=== PATIENT | male | born 1950 | race Two or more races ===

== ENCOUNTER 2022-08-23 17:43 | Inpatient (IN) | payer OTHER ==
[~2022-08-23] VITALS: Ht 160 cm; Wt 83.9 kg
[2022-08-23] MEDS ORDERED: IV NS 0.9% 1,000 ML BAG IV ONE ×2 (18:00→19:00)
--- NOTE | 2022-08-23 18:28 | NUR ---
URINE SAMPLE OBTAINED
[2022-08-23 18:51] LABS: ALANINE AMINOTRANSFERASE 16 U/L (12-78); ALBUMIN 1.9 g/dL (3.4-5.0); ALKALINE PHOSPHATASE 111 U/L (46-116); ASPARTATE AMINOTRANSFERASE 12 U/L (15-37); BILIRUBIN,TOTAL 0.2 mg/dL (0.2-1.0); CALCIUM, SERUM 7.4 mg/dL (8.5-10.1); CARBON DIOXIDE 24 mmol/L (21-32); CHLORIDE 102 mmol/L (98-107); CREATININE 2.2 mg/dL (0.6-1.3); LIPASE 331 U/L (73-393); POTASSIUM 4.6 mmol/L (3.5-5.1); SODIUM SERUM 132 mmol/L (136-145); TOTAL PROTEIN, SERUM 5.9 g/dL (6.4-8.2); UREA NITROGEN, BLOOD 27 mg/dL (7-18)
[2022-08-23 18:55] LABS: GLUCOSE 572 mg/dL (74-106)
[2022-08-23 19:07] LABS: BILIRUBIN,URINE NEGATIVE (NEGATIVE); COLOR,URINE YELLOW (YELLOW); LEUKOCYTE ESTERASE ,URINE NEGATIVE (NEGATIVE); NITRITE, URINE NEGATIVE (NEGATIVE); PH,URINE 6.5 (5.0-8.0); PROTEIN,URINE 3+ mg/dl (NEGATIVE); UGLUCOSE 3+ mg/dL (NEGATIVE); UROBILINOGEN,URINE 0.2 EU/dL (0.2)
[2022-08-23] MEDS ORDERED: Calcium Gluconate 0.465 MEQ/ML VIAL IV ONE ×2 (19:07→20:16)
[2022-08-23] MEDS ORDERED: Calcium Gluconate 1GM/10ML 4.65 MEQ in IV NS 0.9% 100 ML IV ONE (19:30)
[2022-08-23] MEDS ORDERED: INSULIN REGULAR, HUMAN 100 UNIT/ML 10 ML VIAL SQ ONE (19:30)
[2022-08-23 19:40] LABS: SITE, VBG Other; VBG COHb 0.3 %; VBG MetHb 0.3 %; VBG O2Hb 61.5 %; VENT MODE, VBG room air
--- NOTE | 2022-08-23 19:41 | NUR ---
RT AT PT'S BEDSIDE FOR VBG
[2022-08-23 20:16] LABS: BACTERIA,URINE None seen /HPF (None Seen); RBC,URINE 21-50 /HPF (0-2); SQUAMOUS EPITHELIAL CELL,UR 0-2 /HPF (None Seen); WBC,URINE 0-2 /HPF (0-3)
[2022-08-23 20:21] LABS: BASOPHILS # (AUTO) 0.1 K/uL (0.0-0.2); BASOPHILS % (AUTO) 0.4 % (0.0-2.0); EOSINOPHILS % (AUTO) 3.1 % (0.0-6.0); HEMATOCRIT 35 % (39-51); HEMOGLOBIN 11.3 g/dL (13.5-17.5); LYMPHOCYTES # (AUTO) 1.9 K/uL (0.8-4.8); MEAN CORPUSCULAR HGB CONC 32 g/dl (31.0-36.0); MEAN CORPUSCULAR VOLUME 89 fL (80-96); MONOCYTES # (AUTO) 0.5 K/uL (0.1-1.30); MONOCYTES % (AUTO) 4.1 % (2.0-12.0); NEUTROPHILS # (AUTO) 8.4 K/uL (1.8-8.9); NEUTROPHILS % (AUTO) 75.4 % (43.0-81.0); PLATELET COUNT (AUTO) 212 K/uL (150-450); RED BLOOD CELL COUNT(AUTO) 3.95 MIL/uL (4.5-6.0); WHITE BLOOD COUNT (AUTO) 11.2 K/uL (4.3-11.0)
--- NOTE | 2022-08-23 20:58 | NUR ---
Anamaria salter in [facility] - 08/23/22 at 2100 by ANNALEE COVID POSITIVE
[2022-08-23] MEDS ORDERED: ONDANSETRON HCL/PF 4 MG/2 ML VIAL IVP PRN (21:00)
[2022-08-23] MEDS ORDERED: INSULIN REGULAR, HUMAN 100 UNIT/ML 3 ML VIAL SQ PRN (21:00)
[2022-08-23] MEDS ORDERED: Z GUARD REMEDY 4 OZ OINT TP PRN (21:00)
[2022-08-23] MEDS ORDERED: MAG HYDROX/AL HYDROX/SIMETH 30 ML UDC PO PRN (21:00)
[2022-08-23] MEDS ORDERED: *INSULIN REGULAR(HUMULIN R)HUM 100 UNIT/ML VIAL SQ PRN (21:00)
[2022-08-23] MEDS ORDERED: MAGNESIUM HYDROXIDE 30 ML UDC PO PRN (21:00)
[2022-08-23] MEDS ORDERED: ACETAMINOPHEN 325 MG TABLET PO PRN (21:00)
[2022-08-23] MEDS ORDERED: DEXTROSE 50%-WATER 50 ML DISP.SYRIN IV PRN (21:00)
[2022-08-23] MEDS ORDERED: IV NS 0.9% 1,000 ML IV PRN (21:00)
--- NOTE | 2022-08-23 21:00 | NUR ---
REPORT GIVEN TO BRIGHT Adams RN FOR PIERRE
[2022-08-23 22:00] VITALS: BP 194/74
[2022-08-23] MEDS ORDERED: AZITHROMYCIN 250 MG TABLET PO ONE (22:00)
[2022-08-23] MEDS ORDERED: CEFTRIAXONE 1GM BAG (ER ONLY) 1 GM/50 ML PIGGYBACK IV ONE (22:00)
--- NOTE | 2022-08-23 22:06 | NUR ---
PT TRANSFERRED TO [facility] VIA HOSPITAL PROTOCOL. VSS. ALL BELONGINGS WITH PT.
[2022-08-23] MEDS ORDERED: CEFTRIAXONE 1 G in IV D5W 50 ML IV ONE (23:00)
--- NOTE | 2022-08-23 23:00 | NUR ---
CLOTHES MARKER NOTES PATIENT RECEIVED FROM ER VIA GURNEY ACCOMPANIED BY CONG. A/O X4. STABLE ON ROOM AIR. IV ACCESS AT LEFT AC #18, PATENT AND INFUSING NS @50ML/H. SKIN IS INTACT. ORIENTED TO ROOM SET-UP. SAFETY MEASURES INITIATED. BLOOD SUGAR CHECKED. DUE MEDS GIVEN. WILL CONTINUE TO MONITOR.
[2022-08-23] MEDS: BLOOD SUGAR DIAGNOSTIC 1 EACH STRIP VI SCH (23:12)
[2022-08-23] MEDS: HEPARIN SODIUM, PORCINE 5000 UNITS/1 ML VIAL SQ SCH (23:17)
[2022-08-23] MEDS ORDERED: CEFTRIAXONE 1 G VIAL ONE (23:51)
[2022-08-24 06:03] LABS: BASOPHILS # (AUTO) 0.2 K/uL (0.0-0.2); BASOPHILS % (AUTO) 1.6 % (0.0-2.0); EOSINOPHILS % (AUTO) 14.6 % (0.0-6.0); HEMATOCRIT 32 % (39-51); HEMOGLOBIN 10.7 g/dL (13.5-17.5); LYMPHOCYTES % (AUTO) 29.3 % (20.0-44.0); MEAN CORPUSCULAR HGB CONC 33 g/dl (31.0-36.0); MEAN CORPUSCULAR VOLUME 88 fL (80-96); MONOCYTES # (AUTO) 0.5 K/uL (0.1-1.30); MONOCYTES % (AUTO) 5.3 % (2.0-12.0); NEUTROPHILS # (AUTO) 5.1 K/uL (1.8-8.9); NEUTROPHILS % (AUTO) 49.2 % (43.0-81.0); PLATELET COUNT (AUTO) 209 K/uL (150-450); RED BLOOD CELL COUNT(AUTO) 3.66 MIL/uL (4.5-6.0); WHITE BLOOD COUNT (AUTO) 10.4 K/uL (4.3-11.0)
[2022-08-24 06:17] LABS: CALCIUM, SERUM 7.8 mg/dL (8.5-10.1); CREATININE 1.8 mg/dL (0.6-1.3); POTASSIUM 4.3 mmol/L (3.5-5.1)
[2022-08-24 06:28] LABS: THYROID STIMULATING HORMONE 4.359 uIU/mL (0.358-3.74)
[2022-08-24] MEDS: BLOOD SUGAR DIAGNOSTIC 1 EACH STRIP VI SCH ×2 (06:36→12:22)
--- NOTE | 2022-08-24 06:47 | NUR ---
RN CLOSING NOTES PATIENT SLEEPING IN BED. A/O X4. AMBULATORY. ABLE TO MAKE NEEDS KNOWN. STABLE ON ROOM AIR. IV ACCESS AT LEFT AC #18, PATENT AND INFUSING NS @50ML/H. SKIN IS INTACT. DUE MEDS GIVEN. NO SIGNS OF ACUTE DISTRESS NOTED. BLOOD SUGAR CHECKED. WILL ENDORSE TO NEXT SHIFT RN FOR PIERRE.
[2022-08-24] MEDS ORDERED: PANTOPRAZOLE 40 MG TABLET.DR PO SCH (07:30)
[2022-08-24 08:00] VITALS: BP 159/82
[2022-08-24] MEDS ORDERED: INSU100V7 SQ (08:40)
[2022-08-24] MEDS ORDERED: FERR325T23 PO (08:40)
[2022-08-24] MEDS ORDERED: FURO20TA4 PO (08:40)
[2022-08-24] MEDS ORDERED: ATOR10TA PO (08:40)
[2022-08-24] MEDS ORDERED: GABA300C PO (08:40)
[2022-08-24] MEDS ORDERED: INSU100I14 SQ (08:40)
[2022-08-24] MEDS ORDERED: SITA100T PO (08:40)
[2022-08-24] MEDS ORDERED: GLIM2TAB31 PO (08:40)
[2022-08-24] MEDS ORDERED: AMLO-213 PO (08:40)
[2022-08-24] MEDS ORDERED: TAMS-12 PO (08:40)
[2022-08-24] MEDS: HEPARIN SODIUM, PORCINE 5000 UNITS/1 ML VIAL SQ SCH (09:52)
[2022-08-24] MEDS ORDERED: AMLODIPINE BESYLATE 10 MG TABLET PO SCH (10:00)
[2022-08-24 10:11] VITALS: BP 159/82
[2022-08-24] MEDS ORDERED: FERROUS SULFATE (325 MG) 325 MG/TAB TABLET PO SCH (17:00)
[2022-08-24] MEDS ORDERED: GABAPENTIN 300 MG CAPSULE PO SCH (18:00)
[2022-08-24] MEDS ORDERED: INSULIN GLARGINE, 100 UNIT/ML CARTRIDGE SQ SCH (18:00)
[2022-08-24] MEDS ORDERED: ATORVASTATIN 10 MG TABLET PO SCH (18:00)
[2022-08-24] MEDS ORDERED: TAMSULOSIN 0.4 MG CAP.SR.24H PO SCH (18:00)
[2022-08-24] MEDS ORDERED: AZITHROMYCIN 250 MG TABLET PO SCH (22:00)
[2022-08-24] MEDS ORDERED: CEFTRIAXONE 1 G in IV D5W 50 ML IV SCH (23:00)
[2022-08-25] MEDS ORDERED: FUROSEMIDE 20 MG TABLET PO SCH (09:00)
== END 2022-08-24 15:20 | disposition home or self-care (01) | DRG 637 ==
LOC: ER 17:46 → MED 20:40
PROVIDERS: ADMIT Registered Nurse; ATTEND Internal Medicine
DX: E11.65 Type 2 diabetes mellitus with hyperglycemia (principal); N17.0 Acute kidney failure with tubular necrosis; E11.22 Type 2 diabetes mellitus with diabetic chronic kidney disease; I12.9 Hypertensive chronic kidney disease with stage 1 through stage 4 chronic kidney disease, or unspecified chronic kidney disease; N18.9 Chronic kidney disease, unspecified; Z68.33 Body mass index [BMI] 33.0-33.9, adult; E66.9 Obesity, unspecified; E86.0 Dehydration; Z91.14 Patient's other noncompliance with medication regimen; Z20.822 Contact with and (suspected) exposure to COVID-19
CPT/HCPCS: 36415; 71045-TC; 80048-TC; 80076-TC; 81001; 82803-TC; 82962-TC; 83690-TC; 83735-TC; 84100-TC; 84443-TC; 84484-TC; 85025-TC; 87081-TC; 87086-TC; 97116-TC; 97530-TC; C9803; G0378; J0610; J0696; J1644; J1815; J7030; J7060

== ENCOUNTER 2022-10-11 17:25 | Inpatient (IN) | payer MEDICARE, OTHER ==
[~2022-10-11] VITALS: Ht 165.1 cm; Wt 83.0 kg
[~2022-10-11 17:25] MED LIST: AMLO-213 PO; ATOR10TA PO; FERR325T23 PO; FURO20TA4 PO; GABA300C PO; GLIM2TAB31 PO; INSU100I14 SQ; INSU100V7 SQ; SITA100T PO; TAMS-12 PO
--- NOTE | 2022-10-11 17:45 | NUR ---
PT IN BED A/O X4 BREATHING IS EVEN BUT LABORED C/O COUGH, FEVER, AND N/V X3 DAYS. AB PAIN 7/10 PHLEGM IS YELLOW. RECENTLY HAD PINK EYE AND PNA. HX OF DM 2 AND HTN. LEFT LUNG PRESENTS WITH RONCHI ON AUSCULTATION. HEART SOUNDS S1 AND S2.
--- NOTE | 2022-10-11 17:46 | NUR ---
Anamaria salter in [facility] - 10/11/22 at 1746 by MICHAEL BG 81
--- NOTE | 2022-10-11 18:00 | NUR ---
AT BEDSIDE FOR EVAL
--- NOTE | 2022-10-11 18:11 | NUR ---
EMT AT BEDSIDE FOR EKG
[2022-10-11 18:30] LABS: BASOPHILS # (AUTO) 0.1 K/uL (0.0-0.2); BASOPHILS % (AUTO) 0.6 % (0.0-2.0); EOSINOPHILS % (AUTO) 0.2 % (0.0-6.0); HEMATOCRIT 33 % (39-51); HEMOGLOBIN 10.8 g/dL (13.5-17.5); LYMPHOCYTES # (AUTO) 1.5 K/uL (0.8-4.8); LYMPHOCYTES % (AUTO) 10.5 % (20.0-44.0); MEAN CORPUSCULAR HGB CONC 33 g/dl (31.0-36.0); MEAN CORPUSCULAR VOLUME 90 fL (80-96); MONOCYTES # (AUTO) 1.1 K/uL (0.1-1.30); MONOCYTES % (AUTO) 7.5 % (2.0-12.0); NEUTROPHILS # (AUTO) 11.8 K/uL (1.8-8.9); NEUTROPHILS % (AUTO) 81.2 % (43.0-81.0); PLATELET COUNT (AUTO) 217 K/uL (150-450); RED BLOOD CELL COUNT(AUTO) 3.72 MIL/uL (4.5-6.0); WHITE BLOOD COUNT (AUTO) 14.5 K/uL (4.3-11.0)
[2022-10-11] MEDS ORDERED: ONDANSETRON HCL/PF 4 MG/2 ML VIAL IVP ONE (18:30)
[2022-10-11] MEDS ORDERED: ONDANSETRON HCL/PF 4 MG/2 ML VIAL ONE (18:37)
[2022-10-11 18:52] LABS: CALCIUM, SERUM 7.7 mg/dL (8.5-10.1); CARBON DIOXIDE 23 mmol/L (21-32); CHLORIDE 106 mmol/L (98-107); CREATININE 2.5 mg/dL (0.6-1.3); GLUCOSE 218 mg/dL (74-106); POTASSIUM 4.1 mmol/L (3.5-5.1); SODIUM SERUM 136 mmol/L (136-145); UREA NITROGEN, BLOOD 32 mg/dL (7-18)
[2022-10-11] MEDS ORDERED: BENZONATATE 100 MG CAPSULE PO ONE (19:08)
[2022-10-11] MEDS: BENZONATATE 100 MG CAPSULE PO PRN (19:10)
[2022-10-11 19:12] LABS: ALANINE AMINOTRANSFERASE 30 U/L (12-78); ALBUMIN 1.5 g/dL (3.4-5.0); ALKALINE PHOSPHATASE 85 U/L (46-116); ASPARTATE AMINOTRANSFERASE 48 U/L (15-37); BILIRUBIN,DIRECT 0.1 mg/dL (0.0-0.2); BILIRUBIN,TOTAL 0.3 mg/dL (0.2-1.0); TOTAL PROTEIN, SERUM 6.2 g/dL (6.4-8.2)
--- NOTE | 2022-10-11 19:18 | NUR ---
covid and flu swabed and sent to lab
[2022-10-11] MEDS ORDERED: CEFTRIAXONE 1GM BAG (ER ONLY) 1 GM/50 ML PIGGYBACK IV ONE (20:30)
[2022-10-11] MEDS ORDERED: FUROSEMIDE 40 MG/4 ML VIAL IV ONE (20:30)
[2022-10-11] MEDS ORDERED: AZITHROMYCIN 500 MG in IV D5W 250 ML IV ONE (20:30)
[2022-10-11] MEDS ORDERED: AZITHROMYCIN 500 MG VIAL ONE (21:21)
--- NOTE | 2022-10-11 22:05 | NUR ---
report given to elias pina
--- NOTE | 2022-10-11 22:15 | NUR ---
TRAVELING FREIGHT AGENT NOTES ADMITTED A 71-YEAR OLD MALE PT FROM ED, ORIGINALLY FROM HOME. PT ARRIVED VIA GURNEY, ASSISTED BY 2 ED PERSONNEL AND PLACED IN ROOM 108. PT AWAKE, A/O X4, ON ROOM AIR, O2 SAT 98%. PRODUCTIVE COUGH NOTED. IV ACCESS ON RAC#20G, INTACT, PATENT AND NO S/SX OF INFILTRATION. DENIES PAIN AT THIS TIME. SKIN ASSESSMENT DONE, SKIN INTACT, NO WOUNDS NOTED. PT IS AMBULATORY. SAFETY MEASURES IN PLACE: BED LOCKED AND IN LOWEST POSITION, SIDE RAILS UP X3, CALL LIGHT WITHIN REACH. WILL CONTINUE TO MONITOR.
[2022-10-11 22:19] LABS: BAND % (MANUAL) 6 % (0.0-5.0); LYMPHOCYTES % (MANUAL) 17 % (16-48); MONOCYTES % (MANUAL) 7 % (0-11.0); NEUTROPHILS % (MANUAL) 70 (42-76)
[2022-10-12] VITALS: BP 162/81
[2022-10-12] MEDS ORDERED: ACETAMINOPHEN 325 MG TABLET PO PRN
[2022-10-12] MEDS ORDERED: MAGNESIUM HYDROXIDE 30 ML UDC PO PRN
[2022-10-12] MEDS ORDERED: MAG HYDROX/AL HYDROX/SIMETH 30 ML UDC PO PRN
[2022-10-12] MEDS ORDERED: ENOXAPARIN SODIUM 40 MG/0.4 ML DISP.SYRIN SQ SCH
[2022-10-12] MEDS ORDERED: DEXTROSE 50%-WATER 50 ML DISP.SYRIN IV PRN
[2022-10-12] MEDS ORDERED: ONDANSETRON HCL/PF 4 MG/2 ML VIAL IVP PRN
[2022-10-12] MEDS: GABAPENTIN 300 MG CAPSULE PO SCH ×2 (00:22→17:32)
[2022-10-12] MEDS: TAMSULOSIN 0.4 MG CAP.SR.24H PO SCH ×2 (00:22→17:32)
[2022-10-12] MEDS: ATORVASTATIN 10 MG TABLET PO SCH ×2 (00:22→17:32)
[2022-10-12] MEDS: ENOXAPARIN SODIUM 30 MG/0.3 ML DISP.SYRIN SQ SCH ×2 (00:23→20:33)
[2022-10-12] MEDS: BLOOD SUGAR DIAGNOSTIC 1 EACH STRIP IN SCH ×5 (00:44→20:35)
[2022-10-12] MEDS: INSULIN REGULAR, HUMAN 100 UNIT/ML 3 ML VIAL SQ PRN ×2 (00:47→12:31)
[2022-10-12] MEDS: INSULIN GLARGINE, 100 UNIT/ML CARTRIDGE SQ SCH ×2 (00:57→20:34)
[2022-10-12 04:00] VITALS: BP 137/61
--- NOTE | 2022-10-12 06:44 | NUR ---
LOADING MACHINE OPERATOR CLOSING NOTES PT ASLEEP, BUT EASY TO AROUSE, A/O X4, ON ROOM AIR, O2 SAT 98%. ON TELE MONITOR SR WITH HR 92. PRODUCTIVE COUGH NOTED. IV ACCESS ON RAC#20G S/L, INTACT, PATENT AND NO S/SX OF INFILTRATION. DENIES PAIN AT THIS TIME. PT IS AMBULATORY. ALL DUE MEDS WERE GIVEN AND NEEDS ATTENDED. SAFETY MEASURES IN PLACE: BED LOCKED AND IN LOWEST POSITION, SIDE RAILS UP X3, CALL LIGHT WITHIN REACH. ENDORSE TO ONCOMING NURSE FOR PIERRE.
[2022-10-12 07:05] LABS: BASOPHILS # (AUTO) 0.1 K/uL (0.0-0.2); BASOPHILS % (AUTO) 0.5 % (0.0-2.0); EOSINOPHILS % (AUTO) 0.2 % (0.0-6.0); HEMATOCRIT 32 % (39-51); HEMOGLOBIN 10.3 g/dL (13.5-17.5); LYMPHOCYTES # (AUTO) 2.7 K/uL (0.8-4.8); LYMPHOCYTES % (AUTO) 20.6 % (20.0-44.0); MEAN CORPUSCULAR HGB CONC 32 g/dl (31.0-36.0); MEAN CORPUSCULAR VOLUME 90 fL (80-96); MONOCYTES # (AUTO) 1.8 K/uL (0.1-1.30); MONOCYTES % (AUTO) 13.4 % (2.0-12.0); NEUTROPHILS # (AUTO) 8.6 K/uL (1.8-8.9); NEUTROPHILS % (AUTO) 65.3 % (43.0-81.0); PLATELET COUNT (AUTO) 177 K/uL (150-450); RED BLOOD CELL COUNT(AUTO) 3.57 MIL/uL (4.5-6.0); WHITE BLOOD COUNT (AUTO) 13.2 K/uL (4.3-11.0)
[2022-10-12 07:14] LABS: CALCIUM, SERUM 7.8 mg/dL (8.5-10.1); CREATININE 2.8 mg/dL (0.6-1.3); MAGNESIUM 2.3 mg/dL (1.8-2.4); PHOSPHORUS 4.8 mg/dL (2.5-4.9); POTASSIUM 3.8 mmol/L (3.5-5.1)
--- NOTE | 2022-10-12 07:15 | NUR ---
LOTUS NOTES DEVELOPER OPENING NOTES: RECEIVED REPORT FROM MARGUERITE SWAIN. PATIENT IN BED, AWAKE BUT NON VERBAL, DOES NOT ANSWER TO HIS NAME. PATIENT IS ON HIGH FLOW OXYGEN WITH OXYGEN SATURATION OF 95% AT THIS TIME. HOB KEPT ELEVATED. ON WITH HR OF 63 PER TELE MONITOR. PATIENT HAS IV ACCESS ON LEFT UPPER ARM. ALL SAFETY MEASURES IN PLACE. BED LOCKED AND IN LOWEST POSITION WITH BED ALARM ON. CALL LIGHT WITHIN REACH. WILL CONTINUE TO MONITOR PATIENT AT THIS TIME. Addendum: 10/12/22 at 0845 by MARYLOU ROONEY RN PLEASE DISREGARD ABOVE NOTES, CHARTED ON THE WRONG PATIENT
--- NOTE | 2022-10-12 07:18 | NUR ---
TEACHER VISUALLY IMPAIRED OPENING NOTES: RECEIVED PATIENT IN BED, AWAKE, ALERT, ORIENTED X 4. PATIENT IS PORTUGUESE SPEAKING AND NO C/O PAIN OR DISCOMFORT AT THIS TIME. NO RESPIRATORY DISTRESS NOTED AT THIS TIME, ON RA WITH OXYGEN SATURATION OF 95%. ON SR WITH HR OF 88. PATIENT HAS IV ACCESS ON RIGHT AC, PATENT AND FLUSHES WELL, SITE WITH NO S/S INFILTRATION NOTED. ALL SAFETY MEASURES IN PLACE. BED LOCKED AND IN LOWEST POSITION WITH BED ALARM ON. CALL LIGHT WITHIN REACH AND INSTRUCTED TO CALL FOR ASSISTANCE ESPECIALLY WHEN HE NEEDS TO WALK TO THE BATHROOM. PATIENT AGREED AND UNDERSTOOD. WILL CONTINUE TO MONITOR PATIENT THROUGHOUT SHIFT.
[2022-10-12] MEDS: GLIMEPIRIDE 1 MG TABLET PO SCH ×2 (07:30→15:39)
[2022-10-12 08:00] VITALS: BP 140/69
--- NOTE | 2022-10-12 08:06 | NUR ---
AMARYL NOT GIVEN DUE TO BLOOD SUGAR OF 73 MG/DL. PATIENT HAS NO S/S OF HYPOGLYCEMIA, BREAKFAST GIVEN TO THE PATIENT.
[2022-10-12] MEDS: AMLODIPINE BESYLATE 10 MG TABLET PO SCH (08:21)
[2022-10-12] MEDS: LINAGLIPTIN 5 MG TABLET PO SCH (08:21)
[2022-10-12] MEDS: FERROUS SULFATE (325 MG) 325 MG/TAB TABLET PO SCH ×2 (08:21→16:20)
--- NOTE | 2022-10-12 08:21 | NUR ---
TRADJENTA NOT GIVEN DUE TO LOW BLOOD SUGAR OF 73 MG/DL EARLIER
[2022-10-12] MEDS ORDERED: SITAGLIPTIN PHOSPHATE 50 MG TABLET PO SCH (09:00)
[2022-10-12] MEDS ORDERED: POTASSIUM CHLORIDE 20 MEQ TAB.PRT.SR PO SCH (09:00)
[2022-10-12] MEDS: FUROSEMIDE 100 MG/10 ML VIAL IV SCH ×3 (09:44→16:20)
[2022-10-12 12:00] VITALS: BP 137/70
[2022-10-12 16:00] VITALS: BP 142/76
[2022-10-12] MEDS: BENZONATATE 100 MG CAPSULE PO PRN (18:01)
--- NOTE | 2022-10-12 18:45 | NUR ---
NARRATIVE WRITER CLOSING NOTES: PATIENT IN BED, AWAKE, ALERT, ORIENTED X 4. PATIENT IS [place] SPEAKING BUT COMMUNICATES IN [place] WELL. PATIENT HAS NO RESPIRATORY DISTRESS NOTED THROUGHOUT SHIFT, MEDICATED FOR COUGH PRN, NO FEVER THE ENTIRE SHIFT. TOLERATED RA WITH OXYGEN SATURATION OF 95-96% THE ENTIRE TIME. ON SR WITH HR OF 90. PATIENT HAS IV ACCESS ON RIGHT AC, PATENT AND FLUSHES WELL, SITE WITH NO S/S INFILTRATION NOTED. ALL SAFETY MEASURES IMPLEMENTED. BED LOCKED AND IN LOWEST POSITION WITH BED ALARM ON. CALL LIGHT WITHIN REACH. WILL ENDORSE TO INCOMING NURSE FOR CONTINUITY OF CARE.
[2022-10-12 20:00] VITALS: BP 151/78
[2022-10-12] MEDS: AZITHROMYCIN 500 MG in IV D5W 250 ML IV SCH (20:34)
[2022-10-12] MEDS: CEFTRIAXONE 1 G in IV D5W 50 ML IV SCH (20:35)
[2022-10-13] VITALS: BP 115/63
[2022-10-13 04:00] VITALS: BP 129/65
[2022-10-13 07:05] LABS: BASOPHILS # (AUTO) 0.1 K/uL (0.0-0.2); EOSINOPHILS % (AUTO) 5.1 % (0.0-6.0); HEMATOCRIT 30 % (39-51); HEMOGLOBIN 9.9 g/dL (13.5-17.5); LYMPHOCYTES # (AUTO) 2.3 K/uL (0.8-4.8); LYMPHOCYTES % (AUTO) 20.5 % (20.0-44.0); MEAN CORPUSCULAR HGB CONC 32 g/dl (31.0-36.0); MEAN CORPUSCULAR VOLUME 88 fL (80-96); MONOCYTES # (AUTO) 1.1 K/uL (0.1-1.30); MONOCYTES % (AUTO) 9.8 % (2.0-12.0); NEUTROPHILS # (AUTO) 7.3 K/uL (1.8-8.9); NEUTROPHILS % (AUTO) 63.6 % (43.0-81.0); PLATELET COUNT (AUTO) 205 K/uL (150-450); RED BLOOD CELL COUNT(AUTO) 3.44 MIL/uL (4.5-6.0); WHITE BLOOD COUNT (AUTO) 11.4 K/uL (4.3-11.0)
[2022-10-13 07:26] LABS: BILIRUBIN,TOTAL 0.2 mg/dL (0.2-1.0); CALCIUM, SERUM 7.7 mg/dL (8.5-10.1); CREATININE 2.9 mg/dL (0.6-1.3); PHOSPHORUS 5.3 mg/dL (2.5-4.9); POTASSIUM 3.6 mmol/L (3.5-5.1); TOTAL PROTEIN, SERUM 5.6 g/dL (6.4-8.2)
[2022-10-13 07:32] LABS: ALBUMIN 1.2 g/dL (3.4-5.0)
[2022-10-13 08:00] VITALS: BP 160/78
--- NOTE | 2022-10-13 08:18 | NUR ---
telephone maintainer note patient in bed , alert oriented, on sa no sob noted but noted coughing, keep hob elevated at all time, rt ac hl intact and flushed well , bed in lowest and locked position , safety measure implemented, on tele monitor st hr 102 at this time, will cont to monitor
[2022-10-13] MEDS: AMLODIPINE BESYLATE 10 MG TABLET PO SCH (08:34)
[2022-10-13] MEDS: GLIMEPIRIDE 1 MG TABLET PO SCH ×2 (08:34→15:51)
[2022-10-13] MEDS: BENZONATATE 100 MG CAPSULE PO PRN ×2 (08:35→18:04)
[2022-10-13] MEDS: FERROUS SULFATE (325 MG) 325 MG/TAB TABLET PO SCH ×2 (08:35→16:15)
[2022-10-13] MEDS: LINAGLIPTIN 5 MG TABLET PO SCH (08:35)
[2022-10-13] MEDS: INSULIN REGULAR, HUMAN 100 UNIT/ML 3 ML VIAL SQ PRN ×2 (08:38→22:07)
[2022-10-13] MEDS: BLOOD SUGAR DIAGNOSTIC 1 EACH STRIP IN SCH ×4 (08:42→22:06)
--- NOTE | 2022-10-13 10:38 | NUR ---
inbound telemarketer note ua collected as ordered
[2022-10-13 12:00] VITALS: BP 133/68
--- NOTE | 2022-10-13 13:53 | NUR ---
telemarketing fundraiser note seen by rn radha Dooley condition updated
[2022-10-13 15:25] LABS: ABG BASE EXCESS 0.1 mmol/L; ABG PCO2 35.2 mmHg (35.0-45.0); ABG PH 7.447 (7.350-7.450); ABG PO2 77.2 mmHg (75.0-100.0); AaDO2 30.4 mmHg; COHb 0.3 % (0.5-1.5); MetHb 0.2 % (0.0-1.5); O2Hb 94.5 % (94.0-97.0); SITE, ABG Right Radial; VENT MODE, BG RA 21%
--- NOTE | 2022-10-13 15:29 | NUR ---
chief telephone operator note abg done by rt
[2022-10-13 15:50] LABS: CREATININE, URINE 65.2 MG/DL (30.0-125.0)
[2022-10-13 16:00] VITALS: BP 146/70
[2022-10-13 16:09] LABS: BILIRUBIN,URINE NEGATIVE (NEGATIVE); COLOR,URINE YELLOW (YELLOW); LEUKOCYTE ESTERASE ,URINE NEGATIVE (NEGATIVE); NITRITE, URINE NEGATIVE (NEGATIVE); PH,URINE 6.5 (5.0-8.0); PROTEIN,URINE 3+ mg/dl (NEGATIVE); UGLUCOSE 1+ mg/dL (NEGATIVE); UROBILINOGEN,URINE 0.2 EU/dL (0.2)
[2022-10-13] MEDS: TAMSULOSIN 0.4 MG CAP.SR.24H PO SCH (17:16)
[2022-10-13] MEDS: ATORVASTATIN 10 MG TABLET PO SCH (17:17)
[2022-10-13] MEDS: GABAPENTIN 300 MG CAPSULE PO SCH (17:18)
[2022-10-13 17:24] LABS: BACTERIA,URINE Few /HPF (None Seen); RBC,URINE 0-2 /HPF (0-2); SQUAMOUS EPITHELIAL CELL,UR Few /HPF (None Seen); WBC,URINE NONE SEEN /HPF (0-3)
--- NOTE | 2022-10-13 18:34 | NUR ---
telecommunication lines repairer note having dinner able to eat self still coughing, Tessalon po given for cough , bed in lowest and locked position, safety measure implemented, called to Chandni odell rn patient observation assistant for eye drops for artificial tears per patient request, no respond , yet will f]u Addendum: 10/13/22 at 1854 by AILIN HARRELL RN CHANDNI ODELL RN BANK CASHIER CALLED BACK WITH ORDER ARTIFICIAL EYES DROP PRN WILL F\U
--- NOTE | 2022-10-13 19:34 | NUR ---
LACE ROLLER OPERATOR OPENING NOTE RECEIVED PT AWAKE IN BED. A/O X4 AND ABLE TO MAKE NEEDS KNOWN. PT STABLE ON ROOM AIR. NO SOB OR S/S OF RESPIRATORY DISTRESS. BREATHING EVEN AND UNLABORED. ON EXTERNAL INCIDENT COORDINATOR READING SR 98 BPM. IV ACCESS RAC 20G SL, INTACT AND PATENT. SAFETY PRECAUTIONS IN PLACE. BED IN LOWEST LOCKED POSITION, HOB ELEVATED, SIDE RAILS UP X2, AND CALL LIGHT AND TABLE WITHIN REACH. ALL NEEDS MET AT THIS TIME.
[2022-10-13 20:00] VITALS: BP 163/74
[2022-10-13] MEDS: GUAIFENESIN LA 600 MG TABLET.SA PO SCH (21:34)
[2022-10-13] MEDS: POLYVINYL ALCOHOL 15 ML BOTTLE EACHEYE PRN (21:35)
[2022-10-13] MEDS: CEFTRIAXONE 1 G in IV D5W 50 ML IV SCH (21:35)
--- NOTE | 2022-10-13 21:35 | NUR ---
RN NOTE PT REQUESTED EYE DROPS. ADMINISTERED ARTIFICIAL TEARS 1 DROP EACH EYE ORDERED. ALL NEEDS MET AT THIS TIME.
[2022-10-13] MEDS: ENOXAPARIN SODIUM 30 MG/0.3 ML DISP.SYRIN SQ SCH (21:38)
[2022-10-13] MEDS: hydrALAZINE HCL 10 MG TABLET PO PRN (21:55)
--- NOTE | 2022-10-13 21:55 | NUR ---
RN NOTE PT BP 163/74 HR 84. ADMINISTERED HYDRALAZINE 10 MG FOR SBP >140 ORDERED. MADE COMFORTABLE IN BED. ALL NEEDS MET AT THIS TIME.
[2022-10-13] MEDS: INSULIN GLARGINE, 100 UNIT/ML CARTRIDGE SQ SCH (22:08)
[2022-10-13] MEDS: AZITHROMYCIN 500 MG in IV D5W 250 ML IV SCH (22:11)
[2022-10-14] VITALS: BP 144/74
[2022-10-14 04:00] VITALS: BP 144/73
[2022-10-14 06:32] LABS: BASOPHILS # (AUTO) 0.1 K/uL (0.0-0.2); BASOPHILS % (AUTO) 0.9 % (0.0-2.0); EOSINOPHILS % (AUTO) 7.2 % (0.0-6.0); HEMATOCRIT 30 % (39-51); HEMOGLOBIN 9.8 g/dL (13.5-17.5); LYMPHOCYTES # (AUTO) 2.7 K/uL (0.8-4.8); LYMPHOCYTES % (AUTO) 21.8 % (20.0-44.0); MEAN CORPUSCULAR HGB CONC 33 g/dl (31.0-36.0); MEAN CORPUSCULAR VOLUME 88 fL (80-96); MONOCYTES # (AUTO) 1.1 K/uL (0.1-1.30); MONOCYTES % (AUTO) 9.1 % (2.0-12.0); NEUTROPHILS # (AUTO) 7.5 K/uL (1.8-8.9); PLATELET COUNT (AUTO) 222 K/uL (150-450); RED BLOOD CELL COUNT(AUTO) 3.36 MIL/uL (4.5-6.0); WHITE BLOOD COUNT (AUTO) 12.3 K/uL (4.3-11.0)
--- NOTE | 2022-10-14 06:48 | NUR ---
MEDICINAL CHEMIST CLOSING NOTE PT AWAKE IN BED. A/O X4 AND ABLE TO MAKE NEEDS KNOWN. PT STABLE ON ROOM AIR. NO SOB OR S/S OF RESPIRATORY DISTRESS. BREATHING EVEN AND UNLABORED. ON EXTERNAL SQL PROGRAMMER READING SR 80 BPM. IV ACCESS RAC 20G SL, INTACT AND PATENT. ALL DUE MEDS GIVEN ORDERED. SAFETY PRECAUTIONS IN PLACE AT ALL TIMES. BED IN LOWEST LOCKED POSITION, HOB ELEVATED, SIDE RAILS UP X2, AND CALL LIGHT AND TABLE WITHIN REACH. ALL NEEDS MET AT THIS TIME AND WILL ENDORSE TO ONCOMING NURSE FOR PIERRE.
[2022-10-14 06:59] LABS: CALCIUM, SERUM 7.4 mg/dL (8.5-10.1); CREATININE 2.7 mg/dL (0.6-1.3); MAGNESIUM 2.1 mg/dL (1.8-2.4); PHOSPHORUS 4.9 mg/dL (2.5-4.9); POTASSIUM 3.6 mmol/L (3.5-5.1)
--- NOTE | 2022-10-14 07:25 | NUR ---
ORACLE DATABASE MANAGER OPENING NOTE RECEIVED PT AWAKE IN BED. A/O X4 AND ABLE TO MAKE NEEDS KNOWN. PT VERBALLY RESPONSIVE. PT STABLE ON ROOM AIR. NO SOB OR S/S OF RESPIRATORY DISTRESS. BREATHING EVEN AND UNLABORED. ON EXTERNAL ELECTROLESS PLATER READING SR IV ACCESS RAC 20G SL, INTACT AND PATENT, FLUSHING WELL. PT AMBULATORY. ALL SAFETY PRECAUTIONS IN PLACE. BED IN LOWEST LOCKED POSITION, HOB ELEVATED, SIDE RAILS UP X2, AND CALL LIGHT AND TABLE WITHIN REACH.
[2022-10-14] MEDS: BLOOD SUGAR DIAGNOSTIC 1 EACH STRIP IN SCH ×4 (07:43→21:49)
[2022-10-14 08:00] VITALS: BP 133/73
[2022-10-14] MEDS: GLIMEPIRIDE 1 MG TABLET PO SCH ×2 (08:23→16:34)
[2022-10-14] MEDS: FERROUS SULFATE (325 MG) 325 MG/TAB TABLET PO SCH ×2 (08:24→16:34)
[2022-10-14] MEDS: GUAIFENESIN LA 600 MG TABLET.SA PO SCH ×2 (08:24→20:12)
[2022-10-14] MEDS: AMLODIPINE BESYLATE 10 MG TABLET PO SCH (08:24)
[2022-10-14] MEDS: LINAGLIPTIN 5 MG TABLET PO SCH (08:24)
[2022-10-14] MEDS: POLYVINYL ALCOHOL 15 ML BOTTLE EACHEYE PRN (08:25)
[2022-10-14 12:00] VITALS: BP 133/69
[2022-10-14] MEDS: BENZONATATE 100 MG CAPSULE PO PRN (13:30)
[2022-10-14 16:00] VITALS: BP 149/62
[2022-10-14] MEDS: TAMSULOSIN 0.4 MG CAP.SR.24H PO SCH (17:03)
[2022-10-14] MEDS: ATORVASTATIN 10 MG TABLET PO SCH (17:04)
[2022-10-14] MEDS: GABAPENTIN 300 MG CAPSULE PO SCH (17:04)
[2022-10-14] MEDS: INSULIN REGULAR, HUMAN 100 UNIT/ML 3 ML VIAL SQ PRN ×2 (17:06→21:55)
--- NOTE | 2022-10-14 19:15 | NUR ---
AIRPLANE PILOT COMMERCIAL OPENING NOTE RECEIVED PT AWAKE IN BED, WATCHING TV AT THIS TIME. A/O X4 AND ABLE TO MAKE NEEDS KNOWN. ON RA WITH NO SOB OR S/S OF RESPIRATORY DISTRESS. BREATHING EVEN AND UNLABORED. COUGHING WITH YELLOW SPUTUM NOTED. ON TELE MONITOR READING SR 94 BPM. IV ACCESS RAC 20G SL, INTACT AND PATENT, FLUSHING WELL. SAFETY PRECAUTIONS IN PLACE: BED LOCKED AND IN LOWEST POSITION, HOB ELEVATED, SIDE RAILS UP X2, CALL LIGHT AND TRAY TABLE WITHIN REACH. WILL CONTINUE TO MONITOR AND ASSIST.
[2022-10-14 20:00] VITALS: BP 151/74
--- NOTE | 2022-10-14 20:39 | NUR ---
TREATING MACHINE OPERATOR CLOSING NOTE PT AWAKE IN BED. A/O X4 AND ABLE TO MAKE NEEDS KNOWN. PT VERBALLY RESPONSIVE. PT STABLE ON ROOM AIR. NO SOB OR S/S OF RESPIRATORY DISTRESS. BREATHING EVEN AND UNLABORED. ON EXTERNAL RADIO CONTROL CRANE OPERATOR READING SR IV ACCESS RAC 20G SL, INTACT AND PATENT, FLUSHING WELL. PT AMBULATORY. ALL SAFETY PRECAUTIONS IN PLACE. BED IN LOWEST LOCKED POSITION, HOB ELEVATED, SIDE RAILS UP X2, AND CALL LIGHT AND TABLE WITHIN REACH.ENDORSED TO STUDENT COUNSELOR RN FOR CONTUITY OF CARE
[2022-10-14] MEDS: CEFTRIAXONE 1 G in IV D5W 50 ML IV SCH (21:13)
[2022-10-14] MEDS: hydrALAZINE HCL 10 MG TABLET PO PRN (21:49)
--- NOTE | 2022-10-14 21:49 | NUR ---
RN NOTE PT BP 151/74. ADMINISTERED HYDRALAZINE ORDERED TO KEEP SBP <= 140. WILL CONTINUE TO MONITOR.
[2022-10-14] MEDS: ENOXAPARIN SODIUM 30 MG/0.3 ML DISP.SYRIN SQ SCH (21:54)
[2022-10-14] MEDS: INSULIN GLARGINE, 100 UNIT/ML CARTRIDGE SQ SCH (21:55)
[2022-10-14] MEDS: AZITHROMYCIN 500 MG in IV D5W 250 ML IV SCH (21:56)
[2022-10-15] VITALS: BP 140/75
--- NOTE | 2022-10-15 01:46 | NUR ---
RN NOTE 30 RR NOTED TWICE DURING SHIFT. NO SIGNS OF RESPIRATORY DISTRESS. PT DENIES PAIN OR SOB. O2 SAT AT 97%. LUNG SOUNDS CLEAR. WILL CONTINUE TO MONITOR.
[2022-10-15 04:00] VITALS: BP 145/85
[2022-10-15] MEDS: INSULIN REGULAR, HUMAN 100 UNIT/ML 3 ML VIAL SQ PRN (06:44)
[2022-10-15] MEDS: BLOOD SUGAR DIAGNOSTIC 1 EACH STRIP IN SCH ×2 (06:44→11:20)
--- NOTE | 2022-10-15 07:00 | NUR ---
RN OPENING NOTE RECEIVED PT AWAKE IN BED, A/O X4 AND ABLE TO MAKE NEEDS KNOWN. ON RA WITH NO SOB, ON TELE MONITOR READING SR 89 BPM. IV ACCESS RIGHT AC 20G SL, INTACT AND PATENT, FLUSHING WELL. SAFETY PRECAUTIONS IN PLACE: BED LOCKED AND IN LOWEST POSITION, HOB ELEVATED, SIDE RAILS UP X2, CALL LIGHT AND TRAY TABLE WITHIN REACH. WILL CONTINUE TO MONITOR AND ASSIST.
[2022-10-15] MEDS: GLIMEPIRIDE 1 MG TABLET PO SCH (07:29)
--- NOTE | 2022-10-15 07:30 | NUR ---
PATIENT C/O BACK AND NECK PAIN, TYLENOL 650MG GIVEN, WILL CONTINUE TO MONITOR.
[2022-10-15 08:00] VITALS: BP 149/76
[2022-10-15] MEDS: GUAIFENESIN LA 600 MG TABLET.SA PO SCH (08:55)
[2022-10-15] MEDS: LINAGLIPTIN 5 MG TABLET PO SCH (08:55)
[2022-10-15] MEDS: AMLODIPINE BESYLATE 10 MG TABLET PO SCH (08:56)
[2022-10-15] MEDS: FERROUS SULFATE (325 MG) 325 MG/TAB TABLET PO SCH (08:56)
[2022-10-15 12:00] VITALS: BP 162/76
[2022-10-15] MEDS ORDERED: GUAI400T93 PO (12:49)
[2022-10-15] MEDS ORDERED: AMOX-430 PO (12:49)
[2022-10-15] MEDS ORDERED: AZIT250T13 PO (12:49)
== END 2022-10-15 17:00 | disposition home or self-care (01) | DRG 865 ==
LOC: ER 17:28 → MEDSG1 21:36 → TELE1 22:32
PROVIDERS: ADMIT Nurse Practitioner Acute Care; ATTEND Nurse Practitioner Family
DX: B34.9 Viral infection, unspecified (principal); E43 Unspecified severe protein-calorie malnutrition; J15.9 Unspecified bacterial pneumonia; N17.0 Acute kidney failure with tubular necrosis; I50.33 Acute on chronic diastolic (congestive) heart failure; J98.11 Atelectasis; I13.0 Hypertensive heart and chronic kidney disease with heart failure and stage 1 through stage 4 chronic kidney disease, or unspecified chronic kidney disease; I50.9 Heart failure, unspecified; E11.40 Type 2 diabetes mellitus with diabetic neuropathy, unspecified; E11.22 Type 2 diabetes mellitus with diabetic chronic kidney disease; N18.9 Chronic kidney disease, unspecified; Z79.4 Long term (current) use of insulin; Z79.84 Long term (current) use of oral hypoglycemic drugs; Z79.899 Other long term (current) drug therapy; E88.09 Other disorders of plasma-protein metabolism, not elsewhere classified; N40.0 Benign prostatic hyperplasia without lower urinary tract symptoms; E83.39 Other disorders of phosphorus metabolism; I35.0 Nonrheumatic aortic (valve) stenosis; Z20.822 Contact with and (suspected) exposure to COVID-19
CPT/HCPCS: 36415; 36600; 71045-TC; 76770-TC; 80048-TC; 80053-TC; 80061-TC; 80076-TC; 81001; 82570-TC; 82803-TC; 82962-TC; 83735-TC; 83880; 84100-TC; 84300-TC; 84484-TC; 85025-TC; 87081-TC; 93307-TC; 94799-TC; A4223; C9803; G0378; J0456; J0696; J1650; J1815; J1940; J2405; J7050; J7060

== ENCOUNTER 2025-05-07 08:39 | Inpatient (IN) | payer OTHER ==
[~2025-05-07] VITALS: Ht 160 cm; Wt 80.7 kg
[~2025-05-07 08:39] MED LIST changes: +AMOX-430 PO; +AZIT250T13 PO; +GUAI400T93 PO
[2025-05-07 09:12] LABS: PLATELET COUNT (AUTO) 187 K/uL (150-450); RED BLOOD CELL COUNT(AUTO) 3.11 MIL/uL (4.5-6.0); RED CELL DISTRIBUTION WIDTH 14.1 % (11.5-15.0); WHITE BLOOD COUNT (AUTO) 8.9 K/uL (4.3-11.0)
[2025-05-07 09:17] LABS: CALCIUM, SERUM 7.3 mg/dL (8.5-10.1); SODIUM SERUM 132 mmol/L (136-145); UREA NITROGEN, BLOOD 55 mg/dL (7-18)
[2025-05-07 09:32] LABS: CREATININE 8.4 mg/dL (0.6-1.3)
[2025-05-07] MEDS ORDERED: ASPI-1420 PO (10:21)
[2025-05-07 10:57] VITALS: BP 135/90; TEMP 97.7; O2SAT 96
[2025-05-07] MEDS ORDERED: MAG HYDROX/AL HYDROX/SIMETH 30 ML UDC PO PRN (11:00)
[2025-05-07] MEDS ORDERED: MAGNESIUM HYDROXIDE 30 ML UDC PO PRN (11:00)
[2025-05-07] MEDS ORDERED: Z GUARD REMEDY 4 OZ OINT TP PRN (11:00)
[2025-05-07] MEDS ORDERED: DEXTROSE 50%-WATER 50 ML DISP.SYRIN IV PRN (11:00)
[2025-05-07] MEDS ORDERED: CHOL200010 PO (11:01)
[2025-05-07] MEDS ORDERED: CARV12.52 PO (11:01)
[2025-05-07] MEDS ORDERED: HYDR-4077 PO (11:01)
[2025-05-07] MEDS ORDERED: TAMS-12 PO (11:01)
[2025-05-07] MEDS ORDERED: INSU100I14 SQ (11:01)
[2025-05-07] MEDS ORDERED: NITR0.4T48 SL (11:01)
[2025-05-07] MEDS: ASPIRIN 325 MG TABLET PO SCH (11:09)
[2025-05-07 12:00] VITALS: BP 135/93; TEMP 97.6; O2SAT 98
[2025-05-07] MEDS: BLOOD SUGAR DIAGNOSTIC 1 EACH STRIP VI SCH (12:18)
[2025-05-07] MEDS: INSULIN REGULAR, HUMAN 100 UNIT/ML 3 ML VIAL SQ PRN (12:19)
[2025-05-07 13:34] LABS: EOSINOPHILS % (MANUAL) 20 % (0-4); LYMPHOCYTES % (MANUAL) 29 % (16-48); MONOCYTES % (MANUAL) 3 % (0-11.0); NEUTROPHILS % (MANUAL) 48 (42-76); PLATELET ESTIMATE ADEQUATE
[2025-05-07 16:10] VITALS: BP 145/69; TEMP 97.8; O2SAT 97
[2025-05-07 20:00] VITALS: BP 148/67; TEMP 98.1; O2SAT 98
[2025-05-08] VITALS (8 sets, daily range): BP systolic 135–164; BP diastolic 62–81; TEMP 97.9–99.7; O2SAT 94–98
[2025-05-08] MEDS: MORPHINE SULFATE INJ 2 MG/ML DISP.SYRIN IV PRN (02:19)
[2025-05-08] MEDS: ONDANSETRON HCL/PF 4 MG/2 ML VIAL IVP PRN (04:48)
[2025-05-08 07:19] LABS: PLATELET COUNT (AUTO) 182 K/uL (150-450); RED BLOOD CELL COUNT(AUTO) 3.02 MIL/uL (4.5-6.0); RED CELL DISTRIBUTION WIDTH 13.9 % (11.5-15.0); WHITE BLOOD COUNT (AUTO) 10.5 K/uL (4.3-11.0)
[2025-05-08 07:50] LABS: CALCIUM, SERUM 7.3 mg/dL (8.5-10.1); PHOSPHORUS 6.1 mg/dL (2.5-4.9); SODIUM SERUM 131 mmol/L (136-145); UREA NITROGEN, BLOOD 67 mg/dL (7-18)
[2025-05-08 07:56] LABS: CREATININE 9.0 mg/dL (0.6-1.3)
[2025-05-08] MEDS: METOPROLOL TARTRATE 50 MG TABLET PO SCH (11:09)
[2025-05-08] MEDS ORDERED: IV NS 0.9% 250 ML IV ONE (12:13)
[2025-05-08] MEDS ORDERED: IOHEXOL-350 100 ML VIAL IV ONE (12:13)
[2025-05-08] MEDS ORDERED: NITROGLYCERIN 0.4 MG/TAB BOTTLE ONE (12:27)
[2025-05-08] MEDS ORDERED: METOPROLOL TARTRATE INJ 5 MG/5 ML AMPUL ONE ×2 (12:27→12:39)
[2025-05-08] MEDS: METOPROLOL TARTRATE INJ 5 MG/5 ML AMPUL IVP PRN (12:35)
[2025-05-08] MEDS: NITROGLYCERIN 0.4 MG/TAB BOTTLE SL ONE (12:41)
[2025-05-08] MEDS: CLONIDINE HCL 0.1 MG TABLET PO PRN (16:11)
[2025-05-08] MEDS: NITROGLYCERIN 0.4 MG/TAB BOTTLE SL PRN (21:30)
[2025-05-08] MEDS: *INSULIN REGULAR(HUMULIN R)HUM 100 UNIT/ML VIAL SQ PRN (21:39)
[2025-05-09] VITALS: BP 149/69; TEMP 99.3; O2SAT 93
[2025-05-09 04:00] VITALS: BP 145/62; TEMP 98.3; O2SAT 94
[2025-05-09] MEDS: ACETAMINOPHEN 325 MG TABLET PO PRN (04:20)
[2025-05-09 08:00] VITALS: BP 137/57; TEMP 98; O2SAT 96
[2025-05-09 08:25] VITALS: BP 137/57
[2025-05-10 21:04] LABS: HEPATITIS B SURFACE AB (QUAL) Reactive (.)
== END 2025-05-09 18:42 | disposition short-term general hospital (02) | DRG 302 ==
LOC: ER 08:44 → TELE1 10:42
PROVIDERS: ADMIT Internal Medicine; ATTEND Internal Medicine
PROC: 5A1D70Z Performance of Urinary Filtration, Intermittent, Less than 6 Hours Per Day (ICD-10-PCS; principal; 2025-05-08)
DX: I25.110 Atherosclerotic heart disease of native coronary artery with unstable angina pectoris (principal); N18.6 End stage renal disease; I13.2 Hypertensive heart and chronic kidney disease with heart failure and with stage 5 chronic kidney disease, or end stage renal disease; I50.22 Chronic systolic (congestive) heart failure; Z99.2 Dependence on renal dialysis; E11.65 Type 2 diabetes mellitus with hyperglycemia; E11.22 Type 2 diabetes mellitus with diabetic chronic kidney disease; E11.40 Type 2 diabetes mellitus with diabetic neuropathy, unspecified; E78.5 Hyperlipidemia, unspecified; Z79.4 Long term (current) use of insulin; Z79.84 Long term (current) use of oral hypoglycemic drugs; E87.5 Hyperkalemia; Z79.899 Other long term (current) drug therapy; E87.70 Fluid overload, unspecified; N25.0 Renal osteodystrophy; D63.1 Anemia in chronic kidney disease
CPT/HCPCS: 36415; 71045-TC; 75574; 80048-TC; 82962-TC; 83735-TC; 84100-TC; 84484-TC; 85025-TC; 85027-TC; 86706; 87081-TC; 87340; 90935-TC; 93307-TC; G0378; J1815; J2270; J2405; J3490; J7050; Q9967